=== PATIENT | female | born 1970 | race Hispanic/Latino ===

== ENCOUNTER 2018-10-05 10:51 | Emergency (ER) | payer MEDICARE, OTHER ==
[2018-10-05] MEDS ORDERED: METHYLPREDNISOLONE SOD SUCC 125MG/2ML VIAL ONE (11:03)
[2018-10-05] MEDS ORDERED: IPRATROPIUM/ALBUTEROL SULFATE 3 ML SOLUTION IH ONE (11:05)
== END 2018-10-05 11:27 | disposition home or self-care (01) ==
LOC: EDH 10:51
DX: J20.9 Acute bronchitis, unspecified (principal); H66.002 Acute suppurative otitis media without spontaneous rupture of ear drum, left ear; M19.90 Unspecified osteoarthritis, unspecified site; M32.9 Systemic lupus erythematosus, unspecified; Z90.710 Acquired absence of both cervix and uterus
CPT/HCPCS: 94640; 96372; 99283; J2930

== ENCOUNTER 2019-01-11 16:34 | Emergency (ER) | payer SELFPAY ==
[2019-01-11] MEDS ORDERED: TETRACAINE HCL 0.5% 4 ML OPHTH SOLN ONE (16:50)
[2019-01-11] MEDS ORDERED: FLUORESCEIN SODIUM 1 STRIP STRIP ONE (16:50)
[2019-01-11] MEDS ORDERED: ONDANSETRON ODT 4 MG TAB ONE (17:23)
[2019-01-11] MEDS ORDERED: ERYTHROMYCIN BASE 0.5% OPHTH OINT 1 GM TUBE ONE (17:23)
[2019-01-11] MEDS ORDERED: IBUPROFEN 400 MG TABLET ONE (17:23)
== END 2019-01-11 18:15 | disposition home or self-care (01) ==
LOC: EDH 16:34
DX: S05.02XA Injury of conjunctiva and corneal abrasion without foreign body, left eye, initial encounter (principal); I10 Essential (primary) hypertension; L93.0 Discoid lupus erythematosus; Z90.710 Acquired absence of both cervix and uterus; X58.XXXA Exposure to other specified factors, initial encounter; Y93.89 Activity, other specified; Y92.89 Other specified places as the place of occurrence of the external cause; Y99.8 Other external cause status